=== PATIENT | female | born 1970 | race Caucasian/White ===

== ENCOUNTER 2017-06-19 20:37 | Emergency (ER) | payer BC ==
[2017-06-19 20:44] VITALS: BP 160/100
[2017-06-19] MEDS ORDERED: Lidocaine 2% PF * 5 ML VIAL INJ ONE (21:06)
--- NOTE | 2017-06-19 21:43 | UC ---
Laceration HPI - HPI Summary HPI Summary: 2044 LACERATION TO LEFT SECOND FINGER TRIED TO CATCH KNIFE THAT SLIPPED, CAUGHT IT BY THE BLADE. - History Of Current Complaint Chief Complaint: UCLaceration Stated Complaint: FINGER LACERATION Time Seen by Provider: 06/19/17 20:51 Hx Obtained From: Patient Hx Last Menstrual Period: 06/11/17 Laceration Location: Finger - LACERATION TO RIGHT SECOND FINGER Mechanism Of Injury: Sharp Trauma Onset/Duration: Lasting Hours Severity: Moderate Related History: Dominant Hand Right - Allergies/Home Medications Allergies/Adverse Reactions: Allergies Allergy/AdvReac Type Severity Reaction Status Date / Time No Known Allergies Allergy Verified 06/19/17 20:44 Home Medications: Home Medications NK [No Home Medications Reported] 06/19/17 [History Confirmed 06/19/17] PMH/Surg Hx/FS Hx/Imm Hx Previously Healthy: Yes - Surgical History Surgical History: None - Family History Known Family History: Positive: Diabetes - mother Negative: Blood Disorder - Social History Occupation: Employed Full-time Lives: With Family Alcohol Use: None Alcohol Amount: 1 GLASS WINE/DAY Substance Use Type: None Smoking Status (MU): Never Smoked Tobacco - Immunization History Most Recent Tetanus Shot: THINKS UP TO DATE Review of Systems Constitutional: Negative Skin: Other - LACERATION LEFT INDEX FINGER Eyes: Negative ENT: Negative Respiratory: Negative Cardiovascular: Negative Gastrointestinal: Negative Genitourinary: Negative Motor: Negative Neurovascular: Negative Musculoskeletal: Negative Neurological: Negative Psychological: Negative All Other Systems Reviewed And Are Negative: Yes Physical Exam Triage Information Reviewed: Yes Appearance: Well-Appearing, No Pain Distress, Well-Nourished Vital Signs: Initial Vital Signs Temp 98.1 F 06/19/17 20:40 Pulse 84 06/19/17 20:40 Resp 16 06/19/17 20:40 BP 160/100 06/19/17 20:40 Vital Signs Reviewed: Yes Eye Exam: Normal ENT Exam: Normal ENT: Positive: Normal ENT inspection, Hearing grossly normal, TMs normal Dental Exam: Normal Neck exam: Normal Neck: Positive: Supple, Nontender, No Lymphadenopathy Respiratory Exam: Normal Respiratory: Positive: Chest non-tender, Lungs clear, Normal breath sounds, No respiratory distress Cardiovascular Exam: Normal Cardiovascular: Positive: RRR, No Murmur, Pulses Normal Abdominal Exam: Normal Musculoskeletal Exam: Normal Musculoskeletal: Positive: Strength Intact, ROM Intact Neurological Exam: Normal Psychological Exam: Normal Skin: Positive: Other - LACERATON LEFT INDEX FINGER Laceration Repair - Laceration Repair 1 Description: Irregular Laceration Size After Repair: Length (cm) - 1, Width (mm) - 3, Depth (mm) - 4 Type Injection: Digital Anesthesia Used: 2.0% Lido Cleansing Completed Via Routine Prep: Yes Irrigation With Pressure Irrigation Device: Yes Closure Material: Sutures Closure Method: Single Layer Suture Of: Skin Suture Type: Prolene - 3 X PROLENE Laceration Course/Dx - Differential Dx - Laceration/Wound Differental Diagnoses: Joint Space Violation, Joint Infection, Laceration, Tendon Laceration Provider Diagnoses: LACERATION OF LEFT SECCOND FINGER WITH REPAIR Discharge - Discharge Plan Condition: Stable Disposition: HOME Patient Education Materials: Finger Laceration (ED) Referrals: Raymond Boss MD [Primary Care Provider] - Additional Instructions: please have sutures removed in ten days
== END 2017-06-19 21:44 | disposition home or self-care (01) ==
LOC: UCEAST 20:37
DX: S61.211A Laceration without foreign body of left index finger without damage to nail, initial encounter (principal); W26.0XXA Contact with knife, initial encounter; Y92.9 Unspecified place or not applicable
CPT/HCPCS: 12001; 99211; G0463